=== PATIENT | female | born 1965 | race American Indian/Alaskan Native ===

== ENCOUNTER 2019-08-18 08:07 | Outpatient (CLI) | payer OTHER ==
--- NOTE | 2019-08-18 09:06 | XRay Report ---
LEFT SHOULDER, 3 VIEWS INDICATION: L SHOUDLER PAIN. COMPARISON: None. IMPRESSION: No acute osseous or soft tissue abnormality. Minimal inferior spurring at the glenohu meral joint is noted consistent with mild osteoarthritis. There is normal articulation at the AC join t. Signer Name: Mesfin Douglas Jr, MD Signed: 08/18/2019 9:02 AM Workstation Name: [id number]
--- NOTE | 2019-08-18 09:09 | XRay Report ---
RIGHT KNEE, 2 VIEWS INDICATION: R KNEE PAIN. COMPARISON: None. IMPRESSION: Normal bone mineralization. Moderate osteoarthritic changes are identified in all 3 comp artments of the knee. Previous surgical changes in the proximal tibia are noted, correlate with histo ry. A moderate joint effusion is identified on the lateral image. No evidence for acute injury or bon e lesion. Signer Name: Mesfin Douglas Jr, MD Signed: 08/18/2019 9:04 AM Workstation Name: [id number]
--- NOTE | 2019-08-18 09:10 | XRay Report ---
CERVICAL SPINE, 4 VIEWS INDICATION: NECK PAIN. COMPARISON: None. IMPRESSION: Normal bone mineralization. There is straightening of the normal cervical lordosis. Mod erate discogenic disc disease is identified at C5-6 and C6-7. The remaining disc spaces and facet deepak nts are unremarkable. No acute osseous or soft tissue abnormality. Signer Name: Mesfni Douglas Jr, MD Signed: 08/18/2019 9:05 AM Workstation Name: [id number]
== END 2019-08-18 08:08 | disposition home or self-care (01) ==
LOC: XRAY 08:07
PROVIDERS: ATTEND Internal Medicine
DX: M50.322 Other cervical disc degeneration at C5-C6 level (principal); M50.323 Other cervical disc degeneration at C6-C7 level; M17.11 Unilateral primary osteoarthritis, right knee; M25.461 Effusion, right knee; M19.012 Primary osteoarthritis, left shoulder
CPT/HCPCS: 72040